=== PATIENT | female | born 1955 | race Caucasian/White ===

== ENCOUNTER → 2016-12-04 | Outpatient (CLI) | payer OTHER ==
--- NOTE | 2016-12-04 09:08 | MA ---
Screening Digital Mammogram With Tomosynthesis Clinical Indications: Routine screening. Technique: Standard digital cephalocaudal and tomosynthesis mediolateral oblique projections are obt ained. The digital images were processed by the [employer] computer aided detection system. Comparison: November 2015, November 2014, November 2013, November 2012 and November 2011 Breast density: B; There are scattered fibroglandular densities. Findings: CAD was reviewed. No suspicious findings are identified. Impression: Negative mammogram. BI-RADS 1. Recommendation: Routine screening is recommended in one year. [facility] will send a result letter to the patient. Negative mammography should not preclude additional workup of a clinically suspicious finding. The patient's information is entered into a reminder system with a target due date for her next mammo gram. 3
== END ==
LOC: FIMAGING 08:15
DX: Z12.31 Encounter for screening mammogram for malignant neoplasm of breast (principal)
CPT/HCPCS: G0202

== ENCOUNTER → 2017-12-05 | Outpatient (CLI) | payer OTHER | LOC: FIMAGING 10:41 | PROVIDERS: ATTEND Family Medicine | DX: Z12.31 Encounter for screening mammogram for malignant neoplasm of breast (principal) ==

== ENCOUNTER → 2018-03-13 | Outpatient (CLI) | payer OTHER | LOC: FIMAGING 08:58 | PROVIDERS: ATTEND Hospitalist | DX: Q61.00 Congenital renal cyst, unspecified (principal) ==

== ENCOUNTER → 2018-04-16 | Outpatient (CLI) | payer OTHER ==
[~2018-04-16] MED LIST: IOPAMIDOL (ISOVUE-300) 100 ML BTL ONE
== END ==
LOC: FIMAGING 08:52
PROVIDERS: ATTEND Hospitalist
DX: Q61.00 Congenital renal cyst, unspecified (principal)
CPT/HCPCS: Q9967

== ENCOUNTER → 2018-12-08 | Outpatient (CLI) | payer OTHER | LOC: FIMAGING 08:46 | PROVIDERS: ATTEND Family Medicine | DX: Z12.31 Encounter for screening mammogram for malignant neoplasm of breast (principal) ==

== ENCOUNTER → 2019-02-11 | Outpatient (CLI) | payer OTHER | LOC: FIMAGING 09:33 | PROVIDERS: ATTEND Family Medicine | DX: Z01.818 Encounter for other preprocedural examination (principal); Z87.891 Personal history of nicotine dependence ==

== ENCOUNTER → 2019-02-15 | Outpatient (CLI) | payer OTHER | LOC: FIMAGING 09:24 | PROVIDERS: ATTEND Orthopaedic Surgery | DX: M16.0 Bilateral primary osteoarthritis of hip (principal) ==

== ENCOUNTER 2019-03-01 08:49 | Inpatient (IN) | payer OTHER ==
--- NOTE | 2019-03-01 06:40 | PDIAF ---
- Diagnosis Diagnosis: right hip djd Code Status: Full Code - Medication Management Discharge Medications: electronically signed and located in the Home Medication List. - Orders Services needed: Home Care, Physical Therapy Home Care Face to Face: I certify that this patient was under my care and that I had the required knmd-qu-ljxy encounter meeting the encounter requirements on the discharge day. My findings support the fact that the patient is homebound as defined in Home Care Face to Face Continued: CMS Chapter 7 Medicare Benefits Manual 30.1.1 , The condition of the patient is such that there exists a normal inability to leave home and consequently, leaving home would require a considerable and taxing effort. Diet Recommendation: no restrictions on diet Diet Texture: Regular Texture Diet Additional Instructions: TOTAL JOINT ARTHROPLASTY DISCHARGE INSTRUCTIONS 1. Your surgeon follows the [facility] protocol for reducing your risk of DVT (blood clots) following surgery. Medication will be ordered to prevent blood clots. A sudden increase in calf pain and/or swelling could indicate a blood clot in your leg. If this occurs, please call your surgeon or his/her care team assistant. An ultrasound of the leg may be necessary to diagnose a blood clot. If you have conditions that make you a higher risk for blood clots, your surgeon may use more aggressive ways to prevent them. Notify your surgeon if you think you are a high risk for blood clots. 2. Wear your white surgical stockings (BINA hose) for 2 weeks. This decreases your swelling and may help prevent blood clots. It is ok to remove BINA hose at night time to give your legs a break. 3. Swelling and bruising in the surgical leg is common. If you feel that it is excessive, please notify your surgeon. 4. Elevate your surgical leg with the ankle above the hip several times every day. Please keep the leg straight when you elevate by putting pillows under your foot. Do not put pillows under your knee. This will make being able to fully straighten more difficult. This is uncomfortable, but try to do it as much as possible. 5. For total knee replacements use compressive wrap on your knee for 3-5 days after surgery, then you can discontinue it. 6. Use a walker or crutches for 1-2 weeks. Progress your weight-bearing as tolerated. You may start to use a cane when you feel stable and safe. 7. You will receive physical therapy instructions in the hospital. Continue those exercises at home. There are additional exercises in the total joint booklet you were given before surgery. Outpatient physical therapy will begin 7- 10 days after surgery. Please schedule this in advance. 8. Use ice on your knee at least 3-5 times every day for 30 minutes. This helps reduce pain and swelling. Also use it at night before falling asleep. 9. Leave your surgical dressing in place for 2 weeks. Your dressing is water resistant, but not waterproof. Cover it with Saran Wrap or Shbfz-o-Nlbb before showering. You may shower as soon as you feel safe entering a shower. If you notice bleeding from your incision 2 or 3 days after surgery, please notify your surgeon. 10. Due to narcotics, decreased activity and altered diet, most patients experience constipation after surgery. Use hajn-lom-baqswcr stool softeners while you are on narcotics. 11. You may drive a car when you are comfortable bearing weight, have good muscular control of your leg and are off narcotics. This usually occurs 2-4 weeks after surgery, depending on which leg was operated on. 12. If there are questions not addressed here, please refer the [facility] book given for more information. If you still have questions, please contact your surgeon s office. 13. If you have a life-threatening emergency, please call 911 and go to the emergency room immediately. For non-life threatening emergencies, please call your physicians office for advice before going to the emergency room. - Follow Up Care Current Providers and Referrals: Toña Allen MD [Primary Care Provider] - Tor Truong MD [Medical Doctor] -
--- NOTE | 2019-03-01 06:40 | PDHPUP ---
History & Physical Update H&P update statement: This history and physical update is based on an assessment of the patient which was completed after admission or registration (within 24 hours), but prior to the surgery/procedure. H&P update: no change in patient's condition since H&P completed
[~2019-03-01 08:49] MED LIST changes: -IOPAMIDOL (ISOVUE-300) 100 ML BTL ONE; +ROPIVACAINE 0.2% 80 MG, EPINEPHrine 0.2 MG, KETOROLAC TROMETHAMINE 30 MG, morphINE 10 M... IU ONE; +TRANEXAMIC ACID 1,000 MG in NS 100 ML IV ONE
[2019-03-01] MEDS ORDERED: ACETAMINOPHEN 325 MG TAB PO ONE (09:07)
[2019-03-01] MEDS ORDERED: FAMOTIDINE 20 MG TAB PO ONE (09:07)
[2019-03-01] MEDS ORDERED: ceFAZolin 2 GM/DEXTROSE 100 ML IV ONE (09:07)
[2019-03-01] MEDS ORDERED: LR 1,000 ML IV ONE (09:09)
[2019-03-01] MEDS ORDERED: ceFAZolin 1 GM/5 ML SYR ONE (09:52)
--- NOTE | 2019-03-01 09:58 | PDANEPAE ---
ANE History of Present Illness rIGHT tOTAL hIP ANE Past Medical History - Cardiovascular History Hx Hypertension: No Hx Arrhythmias: No Hx Chest Pain: No Hx Coronary Artery / Peripheral Vascular Disease: No Hx CHF / Valvular Disease: No Hx Palpitations: No Cardiovascular History Comment: bp runs low. being seen at [facility] for abnormal ekg - Pulmonary History Hx COPD: No Hx Asthma/Reactive Airway Disease: No Hx Recent Upper Respiratory Infection: No Hx Oxygen in Use at Home: No Hx Sleep Apnea: No Sleep Apnea Screening Result - Last Documented: Negative - Neurologic History Hx Cerebrovascular Accident: Yes Hx Seizures: No Hx Dementia: No Neurologic History Comment: tia 2005. being seen by neurologist dr shazia neri 02/16/19 - Endocrine History Hx Diabetes: No - Renal History Hx Renal Disorders: No - Liver History Hx Hepatic Disorders: No - Neurological & Psychiatric Hx Hx Neurological and Psychiatric Disorders: No - Cancer History Hx Cancer: No - Congenital Disorder History Hx Congenital Disorders: No - GI History Hx Gastrointestinal Disorders: Yes Gastrointestinal History Comment: reflux - Other Health History Other Health History: wears glasses. dermatitis on scalp. rosacea on face - Chronic Pain History Chronic Pain: Yes (right hip) - Surgical History Prior Surgeries: left hip labral repair- arthroscopic. tonsillectomy as a child ANE Review of Systems Review of Systems: - Exercise capacity METS (RN): 4 METS ANE Patient History - Allergies Allergies/Adverse Reactions: No Known Allergies Allergy (Verified 02/11/19 14:28) - Home Medications Home Medications: Fexofenadine HCl [Mary Allergy] 90 mg PO DAILY PRN 02/11/19 [Last Taken Unknown] Herbals/Supplements -Info Only 1 ea PO DAILY 02/11/19 [Last Taken Unknown] Multivitamins [Multivitamin (*)] 1 each PO DAILY 02/11/19 [Last Taken Unknown] Propylene Glycol/Peg 400 [Systane 0.3-0.4% Eye Drops] 1 drop EACHEYE DAILY PRN 02/11/19 [Last Taken Unknown] Pseudoephedrine HCl 30 mg PO DAILY PRN 02/11/19 [Last Taken Unknown] Zolpidem Tartrate [Ambien 5MG (*)] 5 mg PO HS 02/11/19 [Last Taken Unknown] valACYclovir [Valtrex (*)] 500 mg PO BID PRN 02/11/19 [Last Taken Unknown] - NPO status NPO Since - Liquids (Date): 03/01/19 NPO Since - Liquids (Time): 06:00 NPO Since - Solids (Date): 02/28/19 NPO Since - Solids (Time): 23:00 - Smoking Hx Smoking Status: Former smoker - Family Anes Hx Family Hx Anesthesia Complications: none ANE Labs/Vital Signs - Vital Signs Blood Pressure: 112/63 Heart Rate: 42 Respiratory Rate: 8 O2 Sat (%): 98 Height: 170.18 cm Weight: 56.699 kg ANE Physical Exam - Airway Neck exam: FROM Mallampati Score: Class 2 Mouth exam: normal dental/mouth exam - Pulmonary Pulmonary: clear to auscultation - Cardiovascular Cardiovascular: regular rate and rhythym - ASA Status ASA Status: II ANE Anesthesia Plan Anesthesia Plan: spinal
[2019-03-01] MEDS ORDERED: PROPOFOL/EMULSION 500 MG/50 ML BOTTLE IV ONE (10:01)
[2019-03-01] MEDS ORDERED: PROPOFOL 200 MG/20 ML VIAL ONE (10:03)
[2019-03-01] MEDS ORDERED: MIDAZOLAM 2 MG/2 ML VIAL ONE (10:03)
[2019-03-01] MEDS ORDERED: DEXAMETHASONE 4 MG/ML VIAL ONE ×2 (10:05→10:53)
[2019-03-01] MEDS ORDERED: LIDOCAINE 2% 2 ML INJ ONE ×2 (10:05)
[2019-03-01] MEDS ORDERED: ONDANSETRON 4 MG/2 ML VIAL ONE ×3 (10:05→10:52)
[2019-03-01] MEDS ORDERED: BUPIVACAINE/DEXTROSE 7.5MG/ML 2 ML SPINAL AMP SP ONE (10:06)
[2019-03-01] MEDS ORDERED: DEXAMETHASONE 4 MG/ML VIAL IVP PRN ×2 (10:25→11:49)
[2019-03-01] MEDS ORDERED: oxyCODONE IR 5 MG TAB PO PRN ×2 (10:25→11:49)
[2019-03-01] MEDS ORDERED: NALOXONE HCL 0.4 MG/ML INJ IVP PRN ×2 (10:25→11:49)
[2019-03-01] MEDS ORDERED: fentaNYL 100 MCG/2 ML INJ IVP PRN ×2 (10:25→11:49)
[2019-03-01] MEDS ORDERED: MIDAZOLAM 2 MG/2 ML VIAL IVP ONE (10:25)
[2019-03-01] MEDS ORDERED: ONDANSETRON 4 MG/2 ML VIAL IVP PRN ×3 (10:25→11:49)
[2019-03-01] MEDS ORDERED: HYDROmorphONE/DILAUDID 1 MG/ML INJ IVP PRN (10:25)
[2019-03-01] MEDS ORDERED: ALBUTEROL 3 ML DEYVIAL IH PRN ×2 (10:25→11:49)
[2019-03-01] MEDS ORDERED: BUPIVACAINE 0.5% 30 ML SDV ONE (10:38)
[2019-03-01] MEDS ORDERED: fentaNYL 100 MCG/2 ML INJ ONE (10:40)
[2019-03-01] MEDS ORDERED: ePHEDrine SULFATE 25 MG/5 ML SYR ONE (10:54)
[2019-03-01] MEDS ORDERED: PHENYLEPHRINE HCL 100 MCG/ML SYR ONE (11:41)
[2019-03-01] MEDS ORDERED: MAGNESIUM HYDROXIDE 30 ML UDCUP PO PRN (11:47)
[2019-03-01] MEDS ORDERED: ONDANSETRON DISINTEGRATING 4 MG TAB PO PRN (11:47)
[2019-03-01] MEDS ORDERED: CYCLOBENZAPRINE 10 MG TAB PO PRN (11:47)
[2019-03-01] MEDS ORDERED: POLYETHYLENE GLYCOL 3350 17 GM PKT PO PRN (11:47)
[2019-03-01] MEDS ORDERED: diphenhydrAMINE 25 MG CAP PO PRN (11:47)
[2019-03-01] MEDS ORDERED: PROMETHAZINE HCL 25 MG/ML INJ IVP PRN ×2 (11:47→11:49)
[2019-03-01] MEDS ORDERED: BISACODYL 10 MG SUPP PR PRN (11:47)
[2019-03-01] MEDS ORDERED: PROMETHAZINE HCL 25 MG SUPPR PR PRN (11:47)
[2019-03-01] MEDS ORDERED: DIPHENOXYLATE/ATROPINE LOMOTIL 1 TAB PO PRN (11:47)
[2019-03-01] MEDS ORDERED: METOCLOPRAMIDE 10 MG/2 ML VIAL IVP PRN ×2 (11:47→11:49)
[2019-03-01] MEDS ORDERED: LACTULOSE 20 GM/30 ML UDCUP PO PRN (11:47)
--- NOTE | 2019-03-01 11:47 | POSTOPPROG ---
Post Op Note Date of Operation: 03/01/19 Surgeon: Tor Truong System Programmer: Mary Anesthesiologist: Tiana Anesthesia: Spinal Pre-op Diagnosis: Right hip OA Post-op Diagnosis: Right hip OA Indication: Right hip OA Procedure: Right BARB, anterior approach, ANIL assist Findings: Right hip OA Inf/Abcess present in the surg proc area at time of surgery?: No Depth: Deep Incisional (Fascial) EBL: 100-500 Drains: Hemovac
[2019-03-01] MEDS ORDERED: Propylene Glycol/Peg 400 [Systane 0.3-0.4% Eye Drops] 1 DROP EACHEYE PRN (11:49)
[2019-03-01] MEDS ORDERED: MEPERIDINE 25 MG/0.5 ML AMP IVP PRN (11:49)
[2019-03-01] MEDS ORDERED: LABETALOL HCL 5 MG/ML 20 ML MDV IVP PRN (11:49)
[2019-03-01] MEDS ORDERED: LR 500 ML IV PRN (11:49)
[2019-03-01] MEDS ORDERED: PSEUDOEPHEDRINE HCL 30 MG TAB PO PRN (11:49)
[2019-03-01] MEDS ORDERED: PHENYLEPHRINE HCL 100 MCG/ML SYR IVP PRN (11:49)
[2019-03-01] MEDS ORDERED: valACYclovir 500 MG TAB PO PRN (11:49)
[2019-03-01] MEDS ORDERED: LR 1,000 ML IV SCH (12:00)
--- NOTE | 2019-03-01 12:38 | POSTANESTH ---
Post Anesthetic Evaluation Cardiovascular Status: Normal, Stable Respiratory Status: Normal, Stable Level of Consciousness/Mental Status: Can Participate in Eval Pain Control: Adequate, Prn Tx Ordered Nausea/Vomiting Control: Adequate, Prn Tx Ordered Complications Possibly Related to Anesthesia: None Noted
--- NOTE | 2019-03-01 13:11 | PDMN ---
Medical Necessity Medical necessity: [facility] S560 hip arthroplasty IN -- OP: R BARB anterior , dinh assist. AUTH#[id number] FOR CPT 96756- INPT
[2019-03-01] MEDS: oxyCODONE IR 5 MG TAB PO PRN ×3 (13:46→21:09)
--- NOTE | 2019-03-01 16:13 | SOAPPROG ---
ALEKSANDRA Progress Note Assessment/Plan: Assessment: s/p right BARB, anterior approach, Charbel assist - procedure earlier tomorrow Plan: Begin discharge planning - home, support from , home health/PT Continue VTE ppx- aspirin 325 mg once daily, SCDs, BINA cruz Continue pain management Continue PT - follow anterior BARB precautions Remove drain tomorrow 03/01/19 16:11 Subjective: Patient states she is feeling good, pain is minimal/tolerable at this time. She plans to go home tomorrow and will have the support of her at home. She discussed with Dr. Truong having home PT for 1-2 weeks and then will start outpatient PT. She denies shortness of breath, chest pain, fever, chills, nausea , vomiting, calf pain. Objective: Vital Signs Temp Pulse Resp BP Pulse Ox 36.5 C 50 L 14 88/53 L 96 03/01/19 16:06 03/01/19 16:06 03/01/19 16:06 03/01/19 16:06 03/01/19 16:06 02/28/19 03/01/19 03/02/19 05:59 05:59 05:59 Intake Total 775 Output Total 1000 Balance -225 Patient resting comfortably in bed, no acute distress. Her is also present in the room. RLE: Surgical wound dressings are clean, dry and intact. Drain is in place. Lower leg compartments are soft and nontender. She can actively DF and PF her right foot and great toe against resistance. Grossly NVI distally. ICD10 Worksheet Patient Problems: Problems Problem Status Onset Unilateral primary osteoarthritis, right hip Acute
[2019-03-01] MEDS: ACETAMINOPHEN 325 MG TAB PO SCH ×2 (17:14→22:58)
[2019-03-01] MEDS: TRANEXAMIC ACID 650 MG TAB PO SCH (17:14)
[2019-03-01] MEDS: ceFAZolin 2 GM/DEXTROSE 100 ML IV SCH (17:19)
[2019-03-01] MEDS: SENNOSIDES/DOCUSATE SODIUM TAB PO SCH (20:53)
[2019-03-01] MEDS: ASPIRIN 325 MG TAB PO SCH (20:54)
[2019-03-01] MEDS: FAMOTIDINE 20 MG TAB PO SCH (20:54)
[2019-03-01] MEDS ORDERED: ZOLPIDEM TARTRATE 5 MG TAB PO SCH (21:00)
[2019-03-02] MEDS: ceFAZolin 2 GM/DEXTROSE 100 ML IV SCH (02:04)
[2019-03-02] MEDS: TRANEXAMIC ACID 650 MG TAB PO SCH ×2 (02:13→11:29)
[2019-03-02] MEDS: ACETAMINOPHEN 325 MG TAB PO SCH ×2 (06:17→11:30)
--- NOTE | 2019-03-02 07:50 | SOAPPROG ---
SOAP Progress Note Assessment/Plan: Assessment: s/p right BARB, anterior approach, Charbel assist - POD 1 Anemia - expected initially post-op. Asymptomatic. Will continue to monitor Plan: Discharge planning - patient is doing better than expected, she will be going home today. SHe has support from . Will start home health/PT Continue VTE ppx- aspirin 325 mg once daily, SCDs, BINA hose. She will continue aspirin until 6 weeks post-op, BINA hose until 2 weeks post-op Continue pain management Continue PT - follow anterior BARB precautions. She will need to be cleared by PT prior to d/c Subjective: Patient states she is doing well. Her pain is manageable. She is planning on going home today. She worked with OT already and will have PT later this morning to work on walking and stairs. She denies shortness of breath, chest pain, fever, chills, nausea. She has been able to urinate spontaneously. Objective: Vital Signs Temp Pulse Resp BP Pulse Ox 36.7 C 49 L 16 90/59 L 94 03/02/19 03:28 03/02/19 03:28 03/02/19 03:28 03/02/19 03:28 03/02/19 03:28 Laboratory Results 03/02/19 04:35 03/01/19 03/02/19 03/03/19 05:59 05:59 05:59 Intake Total 2175 536 Output Total 1810 Balance 365 536 Patient sitting comfortably in the chair in her room, she is eating breakfast. RLE: Drain has been removed. Wound dressings are dry, intact. There is a small amount of blood that has saturated the distal aspect of the wound dressings. Lower leg compartments are soft, nontender, negative Homans sign. She can actively DF and PF her foot and great toe against resistance. Grossly NVI distally. ICD10 Worksheet Patient Problems: Problems Problem Status Onset Unilateral primary osteoarthritis, right hip Acute
--- NOTE | 2019-03-02 07:55 | PDDCSUM ---
Discharge Summary Discharge Summary: ADMIT DIAGNOSIS: Right hip degenerative joint disease DISCHARGE DIAGNOSIS: Right hip degenerative joint disease DATE/NAME OF PROCEDURE: March 01, 2019 Right total hip arthroplasty, anterior approach, Charbel assist HPI: The patient is a 63 year old female who has end-stage arthritis of her right hip. Clinical and radiographic features are consistent with this. Patient has failed attempts at conservative management, therefore, recommended operative right total hip replacement. HOSPITAL COURSE: Patient was admitted to the hospital floor after uncomplicated right total hip arthroplasty. Patient tolerated the procedure well and had no additional complications. At the time of discharge, patient is tolerating an oral diet, pain is well controlled on oral medications, and is voiding without difficulty. Dressing is clean, dry and intact. There is a small amount of blood on the distal aspect of the dressings. There is no swelling or calf tenderness. Patient has intact plantarflexion, dorsiflexion, EHL function. X-rays demonstrate anatomic positioning with no fracture or lucency. DISCHARGE ACTIVITY: Patient is WBAT and can perform ROM as tolerated. Patient will follow anterior total hip precautions. Patient was instructed to keep dressing clean, dry and intact. Patient is to seek attention for increasing redness, swelling, drainage or discharge. She will have home PT for 1-2 weeks and then she will begin outpatient PT. DISCHARGE MEDICATIONS: oxycodone 5 mg 1-2 every 3 hours prn pain, cyclobenzaprine 10 mg PO every 8 hours prn spasm, Zofran 4 mg orally disintegrating tablet every 8 hours prn nausea, aspirin 325 mg PO daily. FOLLOW-UP: Follow up in 2 weeks. Again, patient is to seek attention for increasing redness, swelling, drainage or discharge.
[2019-03-02] MEDS: FAMOTIDINE 20 MG TAB PO SCH (08:21)
[2019-03-02] MEDS: ASPIRIN 325 MG TAB PO SCH (08:21)
[2019-03-02] MEDS: SENNOSIDES/DOCUSATE SODIUM TAB PO SCH (08:22)
[2019-03-02] MEDS ORDERED: CETIRIZINE 10 MG TAB PO PRN (09:00)
--- NOTE | 2019-03-02 09:44 | PDIAF ---
- Diagnosis Diagnosis: right hip djd Code Status: Full Code - Medication Management Discharge Medications: electronically signed and located in the Home Medication List. - Orders Services needed: Home Care, Physical Therapy Home Care Face to Face: I certify that this patient was under my care and that I had the required elmx-qu-irem encounter meeting the encounter requirements on the discharge day. My findings support the fact that the patient is homebound as defined in Home Care Face to Face Continued: CMS Chapter 7 Medicare Benefits Manual 30.1.1 , The condition of the patient is such that there exists a normal inability to leave home and consequently, leaving home would require a considerable and taxing effort. Diet Recommendation: no restrictions on diet Diet Texture: Regular Texture Diet Additional Instructions: TOTAL JOINT ARTHROPLASTY DISCHARGE INSTRUCTIONS 1. Your surgeon follows the [facility] protocol for reducing your risk of DVT (blood clots) following surgery. Medication will be ordered to prevent blood clots. A sudden increase in calf pain and/or swelling could indicate a blood clot in your leg. If this occurs, please call your surgeon or his/her anesthesiologist assistant certified. An ultrasound of the leg may be necessary to diagnose a blood clot. If you have conditions that make you a higher risk for blood clots, your surgeon may use more aggressive ways to prevent them. Notify your surgeon if you think you are a high risk for blood clots. 2. Wear your white surgical stockings (BINA hose) for 2 weeks. This decreases your swelling and may help prevent blood clots. It is ok to remove BINA hose at night time to give your legs a break. 3. Swelling and bruising in the surgical leg is common. If you feel that it is excessive, please notify your surgeon. 4. Elevate your surgical leg with the ankle above the hip several times every day. Please keep the leg straight when you elevate by putting pillows under your foot. Do not put pillows under your knee. This will make being able to fully straighten more difficult. This is uncomfortable, but try to do it as much as possible. 5. For total knee replacements use compressive wrap on your knee for 3-5 days after surgery, then you can discontinue it. 6. Use a walker or crutches for 1-2 weeks. Progress your weight-bearing as tolerated. You may start to use a cane when you feel stable and safe. 7. You will receive physical therapy instructions in the hospital. Continue those exercises at home. There are additional exercises in the total joint booklet you were given before surgery. Outpatient physical therapy will begin 7- 10 days after surgery. Please schedule this in advance. 8. Use ice on your knee at least 3-5 times every day for 30 minutes. This helps reduce pain and swelling. Also use it at night before falling asleep. 9. Leave your surgical dressing in place for 2 weeks. Your dressing is water resistant, but not waterproof. Cover it with Saran Wrap or Efcsa-a-Qune before showering. You may shower as soon as you feel safe entering a shower. If you notice bleeding from your incision 2 or 3 days after surgery, please notify your surgeon. 10. Due to narcotics, decreased activity and altered diet, most patients experience constipation after surgery. Use ekfa-ify-nrbhsgo stool softeners while you are on narcotics. 11. You may drive a car when you are comfortable bearing weight, have good muscular control of your leg and are off narcotics. This usually occurs 2-4 weeks after surgery, depending on which leg was operated on. 12. If there are questions not addressed here, please refer the [facility] book given for more information. If you still have questions, please contact your surgeon s office. 13. If you have a life-threatening emergency, please call 911 and go to the emergency room immediately. For non-life threatening emergencies, please call your physicians office for advice before going to the emergency room. - Follow Up Care Current Providers and Referrals: Toña Allen MD [Primary Care Provider] - Tor Truong MD [Medical Doctor] -
--- NOTE | 2019-03-02 10:32 | ASMTLACE ---
LACE Length of stay for Answers: 2 days current admission Acuity / Level of Answers: Yes Care: Did the patient have an inpatient admission? Comorbidities - select Answers: Cerebrovascular disease all that apply (CVA, TIA, aneurysms, vasc ular dementia) Opioid dependence / Chronic pain # of Emergency department Answers: 0 visits in the last 6 months Score: 10 Date Signed: 03/02/2019 10:12 AM Electronically Signed By:CR Petty
--- NOTE | 2019-03-02 10:38 | ASMTCMCOM ---
CM Note CM Note Notes: Pt had planned hip surgery, resides with partner. PT rec home care. Pt wants HC, chooses [facility]. Orders to be obtained via [employer]. Date Signed: 03/02/2019 10:14 AM Electronically Signed By:CR Petty
[2019-03-02 11:40] VITALS: BP 89/51
--- NOTE | 2019-03-02 13:17 | GOP ---
[f rep st] OPERATIVE REPORT DATE OF OPERATION: 03/01/2019 SURGEON: Tor Truong MD [employer]ES REP: Jean Pierre Hernandez, GAS WORKER, SENIOR MECHANICAL DEVELOPMENT ENGINEER, was a medical necessity for the entirety of the case. PREOPERATIVE DIAGNOSIS: Right hip degenerative joint disease. POSTOPERATIVE DIAGNOSIS: Right hip degenerative joint disease. PROCEDURE PERFORMED: Right total hip arthroplasty. FINDINGS: SPECIMENS: To Pathology, the femoral head. ESTIMATED BLOOD LOSS: 200 cc. INDICATIONS: Christine is 63-year-old woman with end-stage arthritis to her right hip. Clinical and rad iographic features are consistent with that. She has failed all attempts at conservative management. I have, therefore, recommended operative intervention. I have outlined the surgical procedure, ris ks, benefits, and alternatives. She wished to proceed. Written consent was signed and placed on pat harpreet's chart. DESCRIPTION OF PROCEDURE: Patient was identified in the preanesthesia area. The right hip clearly d emarcated as the operative site with a double marker. She was given 2 g of Ancef intravenously in ro venetie to the operative suite. In the OR, spinal anesthetic was placed followed by additional sedation. The pelvis and both lower extremities were sterilely prepped and draped in the usual fashion. Atte ntion was first turned to the left hemipelvis. A 2 cm incision was made over the iliac crest. Three pins were then placed in the pelvic reference array affixed. Attention was then turned to the right hip. An anterior approach was made. Thick subcutaneous flaps were elevated. The fascia overlying the tensor was opened and the tensor muscle retracted in lateral position. The underlying vascular s tructures were identified, cauterized, and transected. The rectus was elevated off the anterior caps ule. Retractors were placed into an extracapsular position. A T capsulotomy was made. Retractors w ere placed into an intracapsular position. Acetabular checkpoint was placed. Bony wedge was withdra wn from the femoral neck, as was the remnant of the femoral head. The soft tissue labrum was debride d across the acetabulum. The bony landmarks were entered into the computer using the Incentive soft cha. A 52 mm reamer was placed to the appropriate depth with an opening angle of 40 degrees and ant eversion of 20 degrees. A 52 mm acetabular shell was then impacted, confirmed to be fully seated. A 0-degree X3 liner was then placed and confirmed to be fully seated. Attention was then turned to th e femur which was delivered to the use of soft tissue releases and retractor placement. The proximal canal was opened, serial broaching carried out to a size 4 stem. Trial reduction was carried out, a nd a 36 mm -5 mm neck length was placed. The hip was reduced. This restored leg lengths to equal. Stability profile demonstrated full extension with external rotation to 90 degrees without subluxatio n, and intraoperative fluoroscopy was used to confirm appropriate positioning of all components. The trial stem was withdrawn. A final size 4 stem was impacted, confirmed to be fully seated. The trun nion was cleansed, and a 36 mm -5 mm Biolox head was then placed across the cleansed trunnion. The h ip was copiously irrigated and reduced. Stability profile was as previous. A 10-Dutch PVC drain wa s placed. The tissues were injected with a joint cocktail of ropivacaine, Toradol, and epinephrine. Fascia closed using 0 Vicryl, subcutaneous tissue using 2-0 Monocryl, and the skin stapled. Sterile dressings were applied. The patient was awakened, extubated, taken to recovery room in good, stable condition. TOTAL TOURNIQUET TIME: None. COMPLICATIONS: None. IMPLANTS: [place] Trident II acetabular shell, size 52 mm; Trident X3 0-degree polyethylene insert, 36 mm inner diameter; Accolade II 127-degree neck angle, hip stem size 4, and a Biolox head 36 mm -5 mm neck length. DISPOSITION: To the recovery room, then the floor. She will be weightbearing as tolerated. Anterio r hip precautions. /[id number]/MODL
--- NOTE | 2019-03-02 16:08 | ASDISCHSUM ---
Discharge Information Plan Status:Home with Home Health Medically Cleared to Leave: Discharge Date:03/02/2019 01:01 PM CM D/C Disposition: ADT D/C Disposition:Home Health Service Projected Discharge Date:03/02/2019 11:00 AM Transportation at D/C: Discharge Delay Reason: Follow-Up Date:03/02/2019 11:00 AM Discharge Slot: Final Diagnosis: Placement Information Referral Type:*Home Health Care Services Referral ID:[id number] Provider Name:[facility] Address 1:[address] Address 2: City:[place] Selection Factors: State:[place] Patient Contact Information Contact Name:ELVINAMELIA Relationship:Other Address: Work Phone: City: [facility] Phone: [facility] Code: Email: Financial Information Financial Class:HMO and PPO Plans Primary Plan Desc:[employer] DACIA HICKS Primary Plan Number:[id number] Secondary Plan Desc: Secondary Plan Number: Assessment Information LACE LACE Length of stay for Answers: 2 days current admission Acuity / Level of Answers: Yes Care: Did the patient have an inpatient admission? Comorbidities - select Answers: Cerebrovascular disease all that apply (CVA, TIA, aneurysms, vasc ular dementia) Opioid dependence / Chronic pain # of Emergency department Answers: 0 visits in the last 6 months Score: 10 Date Signed: 03/02/2019 10:12 AM Electronically Signed By:CR Petty [facility] Progress Note CM Note CM Note Notes: Pt had planned hip surgery, resides with partner. PT rec home care. Pt wants HC, chooses [facility]. Orders to be obtained via [employer]. Date Signed: 03/02/2019 10:14 AM Electronically Signed By:CR Petty Intervention Information
== END 2019-03-02 13:01 | disposition home health service (06) | DRG 470 ==
LOC: F3N 08:49
PROVIDERS: ADMIT Orthopaedic Surgery; ATTEND Orthopaedic Surgery
PROC: 0SR904A Replacement of Right Hip Joint with Ceramic on Polyethylene Synthetic Substitute, Uncemented, Open Approach (ICD-10-PCS; principal; 2019-03-01 11:30)
PROC: 8E0Y0CZ Robotic Assisted Procedure of Lower Extremity, Open Approach (ICD-10-PCS; principal; 2019-03-01 11:30)
DX: M16.11 Unilateral primary osteoarthritis, right hip (principal); K21.9 Gastro-esophageal reflux disease without esophagitis; Z86.73 Personal history of transient ischemic attack (TIA), and cerebral infarction without residual deficits; Z87.891 Personal history of nicotine dependence
CPT/HCPCS: 97110-GP; 97116-GP; 97161-GP; 97165-GO; J0171; J0690; J1100; J1885; J2250; J2270; J2370; J2405; J2704; J2795; J3010

== ENCOUNTER 2019-03-10 23:50 | Inpatient (IN) | payer OTHER ==
[2019-03-10] MEDS ORDERED: NS 1,000 ML IV ONE (23:52)
[2019-03-10] MEDS ORDERED: PANTOPRAZOLE SODIUM 40 MG VIAL IVP ONE (23:54)
--- NOTE | 2019-03-10 23:57 | EDPHY ---
H & P Time Seen by Provider: 03/10/19 23:57 HPI/ROS: HPI CHIEF COMPLAINT: Possible GI bleed. HISTORY OF PRESENT ILLNESS: This patient is 63-year-old female, Only on Asprin , she arrives to the emergency room concerned about possible GI bleed she had black tarry stool earlier today, she vomited tonight melena. She arrives to the emergency room with blood pressure in 80s. She is pale. Her I-STAT hemoglobin is 5. Hematocrit 15. She is on aspirin. She has never had a GI bleed. She has never had an ulcer. She denies any chest pain or shortness of breath. Does complain of nausea and some GI upset. Past Medical History recent right hip surgery Past Surgical History: Recent right hip surgery Social History: Denies drugs alcohol tobacco. Family History: Noncontributory ROS REVIEW OF SYSTEMS: 10 Systems were reviewed and negative with the exception of the elements mentioned in the history of present illness. Exam Constitutional triage nursing summary reviewed, vital signs reviewed, awake/ alert. Patient's initial blood per 80s over 40s. Eyes normal conjunctivae and sclera, EOMI, PERRLA. HENT pale conjunctiva, pale are eyes normal inspection, atraumatic, moist mucus membranes, no epistaxis, neck supple/ no meningismus, no raccoon eyes. Respiratory clear to auscultation bilaterally, normal breath sounds, no respiratory distress, no wheezing. Cardiovascular rate normal, regular rhythm, no murmur, no edema, distal pulses normal. Gastrointestinal soft, non-tender, no rebound, no guarding, normal bowel sounds, no distension, no pulsatile mass. Genitourinary no CVA tenderness. Musculoskeletal right hip: Ecchymosis present. no midline vertebral tenderness , full range of motion, no calf swelling, no tenderness of extremities, no meningismus, good pulses, neurovascularly intact. Skin pale skin, pink, warm, & dry, no rash, skin atraumatic. Neurologic awake, alert and oriented x 3, AAOx3, moves all 4 extremities equally, motor intact, sensory intact, CN II-XII intact, normal cerebellar, normal vision, normal speech. Psychiatric normal mood/affect. Heme/Lymph/Immune no lymphadenopathy. Differential Diagnosis: Includes but is not limited to in a particular order acute GI bleed, upper GI bleed, peptic ulcer disease, Shalonda-Sawyer tear Medical Decision Making: Plan for this patient 2 large-bore IVs, gentle IV fluids, type and screen, crossmatch for blood, will contact GI, will admit to the ICU, will transfuse blood. Re-evaluation: 1213AM: Dr. Garland, consulted will see 1213am: Dr. Olivares consulted for GIB IV Protonix as been ordered. Patient has 2 large-bore IVs 16 gauge. I have consented the patient for 2 units of blood. Patient be admitted to the ICU. Critical Care: Total Critical Care Time Spent Managing this Patient: 65 Minutes. This time was spent Exclusively with this patient. This Care was exclusive of procedures. The Organ System/life at risk was Acute GIB This Patient was in Critical Condition because GIB Patient consents for blood. Source: Patient, EMS - Medical/Surgical History Hx Asthma: No Hx Chronic Respiratory Disease: No Hx Diabetes: No Hx Cardiac Disease: No Hx Renal Disease: No Hx Cirrhosis: No Hx Alcoholism: No Hx HIV/AIDS: No Hx Splenectomy or Spleen Trauma: No Other PMH: L hip- torn labral repair, HSV - Social History Smoking Status: Former smoker Constitutional: Initial Vital Signs O2 Sat (%) 100 03/10/19 23:53 O2 Delivery Mode Nasal Cannula O2 (L/minute) 2 Allergies/Adverse Reactions: No Known Allergies Allergy (Verified 03/11/19 00:01) Home Medications: Medication Instructions Recorded Fexofenadine HCl [Mary Allergy] 90 mg PO DAILY PRN 02/11/19 Herbals/Supplements -Info Only 1 ea PO DAILY 02/11/19 Multivitamins [Multivitamin (*)] 1 each PO DAILY 02/11/19 Propylene Glycol/Peg 400 [SYSTANE 1 drop EACHEYE DAILY PRN 02/11/19 0.3-0.4% EYE DROPS] Pseudoephedrine HCl 30 mg PO DAILY PRN 02/11/19 Zolpidem Tartrate [Ambien 5MG (*)] 5 mg PO HS 02/11/19 valACYclovir [Valtrex (*)] 500 mg PO BID PRN 02/11/19 Cyclobenzaprine [Flexeril 10 MG 10 mg PO Q8HRS PRN #20 tab 03/02/19 (*)] Ondansetron Odt [Zofran Odt 4 mg 4 mg PO Q4HRS PRN #20 tab 03/02/19 (*)] oxyCODONE IR [Oxycodone Ir (*)] 5 - 10 mg PO Q3HRS PRN #50 tab 03/02/19 Acetaminophen [Tylenol 325mg (*)] 650 mg PO Q6H PRN 03/11/19 Selenium Sulfide [Anti-Dandruff] 1 sophia TP Q2D 03/11/19 metroNIDAZOLE 0.75 % [Metrogel 1 sophia TP DAILY 03/11/19 0.75% Topical Gel] Pantoprazole Sodium [Protonix 40mg 40 mg PO BID #120 tab 03/12/19 (*)] Medical Decision Making - Data Points Laboratory Results: Laboratory Results 03/10/19 23:52 03/10/19 00:00 Medications Given: Discontinued Medications Fentanyl (Sublimaze) 25 - 100 mcg IVP Q5M PRN PRN Reason: PACU, IMMEDIATE Pain control Stop: 03/11/19 10:04 Last Admin: 03/11/19 09:25 Dose: 50 mcg Sodium Chloride (Ns) 1,000 mls @ 0 mls/hr IV EDNOW ONE; Wide Open PRN Reason: Protocol Stop: 03/10/19 23:53 Last Admin: 03/10/19 23:59 Dose: 1,000 mls Sodium Chloride (Ns) 1,000 mls @ 100 mls/hr IV CONT SAYRA Stop: 09/07/19 00:59 Last Admin: 03/11/19 13:55 Dose: 1,000 mls Lactated Ringer's (Lr) 1,000 mls @ 0 mls/hr IV ONCE ONE PRN Reason: Per Protocol Stop: 03/11/19 06:56 Last Admin: 03/11/19 07:25 Dose: 1,000 mls Lactated Ringer's (Lr) 1,000 mls @ 0 mls/hr IV ONCE ONE PRN Reason: KVO Stop: 03/12/19 13:15 Last Admin: 03/12/19 13:31 Dose: 1,000 mls Ondansetron HCl (Zofran) 4 mg IVP Q4HRS PRN PRN Reason: Nausea/Vomiting, Can't Take PO Stop: 09/07/19 00:48 Last Admin: 03/11/19 09:31 Dose: 4 mg Pantoprazole Sodium (Protonix) 80 mg IVP EDNOW ONE Stop: 03/10/19 23:55 Last Admin: 03/11/19 00:20 Dose: 80 mg Pantoprazole Sodium (Protonix) 40 mg IVP Q6H SAYRA Stop: 09/07/19 05:59 Last Admin: 03/12/19 17:45 Dose: 40 mg Throat Lozenges (Cepacol Lozenge) 1 ea PO PRN PRN PRN Reason: Sore Throat Stop: 09/07/19 14:55 Last Admin: 03/11/19 15:13 Dose: 1 ea Zolpidem Tartrate (Ambien) 5 mg PO HS SAYRA Stop: 09/07/19 20:59 Last Admin: 03/11/19 22:06 Dose: 5 mg Point of Care Test Results: Chemistry 03/11/19 00:00 POC Sodium 138 mEq/L mEq/L (135-145) POC Potassium 3.4 mEq/L mEq/L (3.3-5.0) POC Chloride 102 mEq/L mEq/L (97-110) POC Total CO2 22 mEq/L mEq/L (22-31) POC BUN 36 mg/dL H mg/dL (7-23) POC Creatinine 0.8 mg/dL mg/dL (0.6-1.0) POC Glucose 154 mg/dL H mg/dL (70-100) ISTAT H&H 03/11/19 00:00 POC Hgb 5.1 gm/dL L* gm/dL (12.6-16.3) POC Hct 15 % L* % (38-47) Departure - Departure Disposition: [facility] Inpatient Acute Clinical Impression: GI bleed Qualifiers: GI bleed type/associated pathology: melena Qualified Code(s): K92.1 - Melena Condition: Critical
[2019-03-11 00:12] LABS: PLATELET COUNT 260 10^3/uL (150-400)
[2019-03-11 00:15] LABS: INR 1.26 (0.83-1.16); PROTIME(PATIENT) 15.3 SEC (12.0-15.0)
[2019-03-11] MEDS ORDERED: LORazepam 2 MG/ML INJ IVP PRN (00:49)
[2019-03-11] MEDS ORDERED: ONDANSETRON 4 MG/2 ML VIAL IVP PRN ×2 (00:49→09:04)
[2019-03-11] MEDS ORDERED: PROMETHAZINE HCL 25 MG/ML INJ IVP PRN (00:49)
[2019-03-11] MEDS ORDERED: ONDANSETRON DISINTEGRATING 4 MG TAB PO PRN (00:49)
[2019-03-11] MEDS ORDERED: ACETAMINOPHEN 650 MG SUPP PR PRN (00:53)
[2019-03-11] MEDS ORDERED: NS 1,000 ML IV SCH (01:00)
--- NOTE | 2019-03-11 01:44 | GHP ---
[f rep st] HISTORY AND PHYSICAL DATE OF ADMISSION: 03/11/2019 The patient provides history, appears reliable. EMR was reviewed and case discussed with ED provider . CHIEF COMPLAINT: Vomiting blood. HISTORY OF PRESENT ILLNESS: This is a very pleasant 63-year-old female with past medical history sig nificant for degenerative joint disease of the right hip, status post a right total hip arthroplasty with Dr. Truong on 03/01/19; iron-deficiency anemia; GERD; remote history of peptic ulcer disease wit h GI bleed remotely; who presents to the emergency department today with complaints of 1 day of black tarry stools and this evening vomiting dark coffee-ground emesis. The patient reports that she has been feeling increasingly lightheaded. She reported to RN that she had a syncopal episode in the bat hroom. She denies any true fevers, but did measure a temp up to 99, feeling cool but no shaking chil ls. She did have some nausea and 1 episode of vomiting, and has had continued GI bloating and abdomi nal upset. The pain is epigastric, does not radiate to her back. The patient is not currently on an y aspirin or Lovenox for postoperative DVT. The patient reports she is feeling tired, lightheaded, a nd noticed that she was quite pale today. She does take iron supplementation, even before surgery. She had not noticed any blackening of stools or change in color until today. REVIEW OF SYSTEMS: Ten systems reviewed, and negative except as noted above. Patient denies any jeremy st pain, palpitations. She did have increasing dyspnea on exertion and lightheadedness today only. ALLERGIES: No known drug allergies. HOME MEDICATIONS: As available per the EMR. Med rec is not yet completed. Please see EMR when avai lable. PAST MEDICAL HISTORY: Significant for degenerative joint disease of the right hip, status post right total hip arthroplasty; HSV; anemia of iron deficiency; GERD; history of TIA in 2005; plantar fascii tis; peptic ulcer disease, with history of bleed remotely. PAST SURGICAL HISTORY: Significant for right total hip arthroplasty 03/01/19, tonsillectomy, adenoid ectomy, colonoscopy, EGD, laparoscopic surgery for ectopic , FAMILY HISTORY: Father with hypertension, alcohol dependence, and pancreatic cancer. Mother with hi story of dementia, [place]. Paternal grandmother: CVA. Maternal grandfather: [place]. 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 She lives with her lifetime partner of 20 years. Before surgery patient was drinking 3-4 glasses or more of wine weekly. She has not had any alcohol for the past 2 weeks, except for a sip yesterday. She quit smoking multiple years ago and denies any illicit drugs. CODE STATUS: Full. PHYSICAL EXAM: VITAL SIGNS: Upon arrival to the emergency department: Blood pressure 87/53, heart rate 75, respiratory rate 16, O2 sat 98% on 2 L by nasal cannula, temperature 36.7. Current vital si gns available: Blood pressure is 147, heart rate is 78, respiratory rate 16, O2 sat is 100% on 2 L b y nasal cannula. GENERAL: The patient without any acute distress. Pleasant, thin adult female. Ly ing awake in bed. She does appear very pale. Her partner is at bedside. HEAD: Normocephalic, atra umatic. EYES: Extraocular muscles are grossly intact. Pupils equal and round with slightly decreas ed reactivity to light bilaterally, but symmetric. No scleral icterus or conjunctival injection. EN T: Mucous membranes are slightly dry. Mucous membranes are quite pale. Dentition intact. No nasal discharge. She does have some dry blood in the left naris. NECK: Supple. Trachea midline. CV: Regular rate and rhythm without any murmurs, rubs, or gallops appreciated. RESPIRATORY: Lungs clear to auscultation bilaterally. No wheezes, rales, or rhonchi appreciated. Unlabored breathing. ABDO MEN: Mildly distended. Patient has epigastric abdominal discomfort to palpation. No rebound or gua rding appreciated. : No suprapubic tenderness to palpation. No Joe catheter in place. EXTREMIT IES: The right hip is bandaged and is dry, clean and intact. There are some peripheral contusions i n various stages of healing. Minimally tender to palpation. The patient is able to move all extremi ties. Sits up independently. NEURO: Grossly nonfocal. Moves all extremities as noted above. PSYC H: Thought process and content, and questions are all appropriate. Patient is pleasant and cooperat cintia. LABORATORY STUDIES: WBC is 9.66, H and H are 5.7 and 17.5, MCV 97.8, platelet count is 260, neutroph il percent 69.6, no bands. PT 15.3, INR is 1.26, PTT is pending. VBG: Lactic acid 2.3. Sodium is 136, potassium 3.9, chloride is 105, CO2 is 22, anion gap 9; BUN is 42, creatinine 0.8, GFR of greate r than 60; glucose 165, calcium is 8.0. Total bilirubin 0.3, ALT is 33, AST is 21, alk phos 59, tota l protein 4.6, albumin is 2.5. Lipase 211. ASSESSMENT AND PLAN: A very pleasant 63-year-old female with history of gastroesophageal reflux dise ase; remote gastric ulcer with bleed; history of transient ischemic attack in 2016; degenerative join t disease, status post a total hip arthroplasty on 03/01/19; iron-deficiency anemia. Presents to the emergency department today with complaints of 1-day history of melena and episode of coffee-ground e mesis with lightheadedness and a syncopal episode at home. 1. Upper gastrointestinal bleed with coffee-ground emesis and melenic stools. Patient has been star nury on PPI bolus. We will continue serial dosing. She will be made n.p.o. GI was consulted from [facility] emergency department will plan to see her in the morning once stabilized. The patient has not had any additional episodes since arrival. Suspect a gastric ulcer versus gastritis. Patient has not be en on aspirin or Lovenox postoperatively. 2. Acute blood-loss anemia. Anticipate replacement to achieve goal of greater than 7 and 21 for H a nd H. 3. Elevated lactic acid, likely secondary to dehydration and hypotension. No evidence of infectious process at this time. Hypocalcemia corrects for hypoalbuminemia, which is likely due to acute posto perative status versus acute gastrointestinal condition. 4. Chronic medical issues: a. Gastroesophageal reflux disease, on PPI. b. Anemia, iron deficiency, receiving transfusion. 5. Syncopal episode secondary to hypovolemia and acute blood-loss anemia. 6. Fluid, electrolyte, nutrition: IV fluid supplementation. Patient will be made n.p.o. pending GI evaluation the morning. Monitor electrolytes, replace if needed. 7. Prophylaxis: SCDs. Holding anticoagulation in setting of acute bleeding. 8. COR status is full. 9. Disposition: The patient admitted to inpatient status. She will require ICU level of care in [facility] setting of severe anemia, hypotension, and acute blood loss with likely an upper GI bleeding. /[id number]/MODL
[2019-03-11 04:57] LABS: PLATELET COUNT 183 10^3/uL (150-400)
[2019-03-11 05:06] LABS: INR 1.24 (0.83-1.16); PROTIME(PATIENT) 15.1 SEC (12.0-15.0)
[2019-03-11] MEDS ORDERED: LR 1,000 ML IV ONE (06:55)
[2019-03-11] MEDS: PANTOPRAZOLE SODIUM 40 MG VIAL IVP SCH ×3 (07:24→17:50)
[2019-03-11] MEDS ORDERED: LIDOCAINE 2% 100 MG/5 ML SYR ONE (08:33)
[2019-03-11] MEDS ORDERED: PROPOFOL/EMULSION 500 MG/50 ML BOTTLE IV ONE (08:33)
--- NOTE | 2019-03-11 08:37 | PDANEPAE ---
ANE History of Present Illness EGD ANE Past Medical History - Cardiovascular History Hx Hypertension: No Hx Arrhythmias: No Hx Chest Pain: No Hx Coronary Artery / Peripheral Vascular Disease: No Hx CHF / Valvular Disease: No Hx Palpitations: No Cardiovascular History Comment: bp runs low. being seen at [facility] for abnormal ekg - Pulmonary History Hx COPD: No Hx Asthma/Reactive Airway Disease: No Hx Recent Upper Respiratory Infection: No Hx Oxygen in Use at Home: No Hx Sleep Apnea: No - Neurologic History Hx Cerebrovascular Accident: Yes Hx Seizures: No Hx Dementia: No Neurologic History Comment: tia 2005. being seen by neurologist dr shazia neri 02/16/19 - Endocrine History Hx Diabetes: No - Renal History Hx Renal Disorders: No - Liver History Hx Hepatic Disorders: No - Neurological & Psychiatric Hx Hx Neurological and Psychiatric Disorders: No - Cancer History Hx Cancer: No - Congenital Disorder History Hx Congenital Disorders: No - GI History Hx Gastrointestinal Disorders: Yes Gastrointestinal History Comment: reflux - Other Health History Other Health History: wears glasses. dermatitis on scalp. rosacea on face - Chronic Pain History Chronic Pain: Yes (right hip) - Surgical History Prior Surgeries: left hip labral repair- arthroscopic. tonsillectomy as a child ANE Review of Systems Review of Systems: lightheaded, passed out ANE Patient History - Allergies Allergies/Adverse Reactions: No Known Allergies Allergy (Verified 03/11/19 00:01) - Home Medications Home medications: home medication list seen and reviewed Home Medications: Fexofenadine HCl [Mary Allergy] 90 mg PO DAILY PRN 02/11/19 [Last Taken Unknown] Herbals/Supplements -Info Only 1 ea PO DAILY 02/11/19 [Last Taken Unknown] Multivitamins [Multivitamin (*)] 1 each PO DAILY 02/11/19 [Last Taken Unknown] Propylene Glycol/Peg 400 [SYSTANE 0.3-0.4% EYE DROPS] 1 drop EACHEYE DAILY PRN 02/11/19 [Last Taken Unknown] Pseudoephedrine HCl 30 mg PO DAILY PRN 02/11/19 [Last Taken Unknown] Zolpidem Tartrate [Ambien 5MG (*)] 5 mg PO HS 02/11/19 [Last Taken Unknown] valACYclovir [Valtrex (*)] 500 mg PO BID PRN 02/11/19 [Last Taken Unknown] - NPO status NPO Status: no food or drink >8 hours - Anes Hx Anes Hx: no prior problems - Smoking Hx Smoking Status: Former smoker - Family Anes Hx Family Anes Hx: none Family Hx Anesthesia Complications: none ANE Labs/Vital Signs - Labs Result Diagrams: 03/11/19 04:20 03/11/19 04:20 - Vital Signs Vital Signs: reviewed preoperatively; see RN documention for details Blood Pressure: 97/54 Heart Rate: 65 Respiratory Rate: 15 O2 Sat (%): 97 Height: 170.18 cm Weight: 62.7 kg ANE Physical Exam - Airway Neck exam: FROM Mallampati Score: Class 1 - Pulmonary Pulmonary: no respiratory distress - Cardiovascular Cardiovascular: regular rate and rhythym - ASA Status ASA Status: III ANE Anesthesia Plan Total IV Anesthesia: Yes
[2019-03-11] MEDS ORDERED: EPINEPHrine 1 MG/10 ML SYR IVP ONE (08:46)
--- NOTE | 2019-03-11 09:01 | GIREPORT ---
Former[facility] Surgical Services - Endoscopy Department Patient Name: Christine Lamb Procedure Date: 03/11/2019 8:04 AM Patient Type: Inpatient Attending MD/ ER Physician: Orion Garland MD Procedure: Upper GI endoscopy Indications: Acute post hemorrhagic anemia, Coffee-ground emesis, Melena Providers: Orion Garland MD Medicines: General Anesthesia Complications: No immediate complications. Description of Procedure: After obtaining informed consent, the endoscope was passed under direct vision. Throughout the procedure, the patient's blood pressure, pulse, and oxygen saturations were monitored continuously. The Endoscope was intro duced through the mouth, and advanced to the second part of duodenum. The [facility] er GI endoscopy was accomplished without difficulty. The patient tolerated th e procedure well. Findings: The examined esophagus was normal. Hematin (altered blood/bknogz-shhtko-cbit material) was found in the en tire examined stomach. The gastric body was normal. Biopsies were taken with a cold forceps fo r histology. One non-obstructing non-bleeding gastric ulcer of significant severity with adherent clot was found in the gastric antrum. Area was successfully injected with 4 mL of a 1:10,000 solution of epinephrine for hemostasis . A deformity was found in the gastric antrum. The examined duodenum was normal. Estimated Blood Loss: Estimated blood loss: none. Post Op Diagnosis: - Patient at high risk for re-bleeding. - Normal esophagus. - Hematin (altered blood/jjetwo-prixex-fwpi material) in the entire sto mach. - Normal gastric body. Biopsied. - Non-obstructing non-bleeding gastric ulcer with adherent clot. Inject ed. - Acquired deformity in the gastric antrum. - Normal examined duodenum. Recommendation: - Continue to monitor closely in the ICU - NPO. - Serial H and H ,q 8 hours - Give Protonix (pantoprazole): initiate therapy with 80 mg IV bolus, t hen 8 mg/hr IV by continuous infusion. - If acute signs or symptoms of re-bleeding will repeat EGD emergently for endoscopic management. Otherwise repeat EGD in the next 24 to 48 hours to reassess ulcer. - Thank you for allowing me to participate in the care of your patient. Attending Participation: I personally performed the entire procedure. Orion Garland MD Orion Garland MD 03/11/2019 9:01:13 AM This report has been signed electronicallyStevduy Garland MD Number of Addenda: 0 Note Initiated On: 03/11/2019 8:04 AM [email or web address]}
[2019-03-11] MEDS ORDERED: DEXAMETHASONE 4 MG/ML VIAL IVP PRN (09:04)
[2019-03-11] MEDS ORDERED: oxyCODONE IR 5 MG TAB PO PRN (09:04)
[2019-03-11] MEDS ORDERED: ONDANSETRON 4 MG/2 ML VIAL ONE (09:04)
[2019-03-11] MEDS ORDERED: HYDROCODONE/APAP 5/325 TAB PO PRN (09:04)
[2019-03-11] MEDS ORDERED: NALOXONE HCL 0.4 MG/ML INJ IVP PRN (09:04)
[2019-03-11] MEDS ORDERED: fentaNYL 100 MCG/2 ML INJ IVP PRN (09:04)
--- NOTE | 2019-03-11 09:05 | POSTANESTH ---
Post Anesthetic Evaluation Cardiovascular Status: Similar to Pre-Op Cond Respiratory Status: Normal, Stable, Similar to Pre-op Cond. Level of Consciousness/Mental Status: Can Participate in Eval, Mildly Sleepy, Arousable Pain Control: Adequate, Prn Tx Ordered Nausea/Vomiting Control: Adequate, Prn Tx Ordered Complications Possibly Related to Anesthesia: None Noted
[2019-03-11] MEDS ORDERED: fentaNYL 100 MCG/2 ML INJ ONE (09:28)
--- NOTE | 2019-03-11 09:45 | GCON ---
[f rep st] CONSULTATION DATE OF CONSULTATION: 03/11/2019 REFERRING PHYSICIAN: Bruna Olivares MD CHIEF COMPLAINT: A 63-year-old woman with a GI bleed. HISTORY OF PRESENT ILLNESS: I have been asked to see this 63-year-old woman in consultation by Bruna Olivares MD for evaluation of GI bleeding. Patient has a history of DJD and previous hip surgery with a total right hip arthroplasty replacement in February of this year. She reportedly does have a history of iron deficiency anemia, gastroesophageal reflux disease, and chronic nonulcerative dyspepsia. She does have a reported prior history of peptic ulcer disease and prior GI bleeding remotely. She felt well yesterday, had a late dinner. About 9 p.m. started feeling unwell, had abdominal bloating with lightheadedness and some shortness of breath. She took some Gas-X and Pepto-Bismol, but still felt unwell. She progressively became worse, had an episode of nausea, vomiting with hematemesis, and a syncopal episode. She was brought to the emergency department. She was found to be profoundly anemic. She did have a 1-day history of black tarry stool. She does have a history of NSAID use. She takes daily aspirin. She does not take a daily proton pump inhibitor. I have been asked to see patient for further evaluation. PAST MEDICAL HISTORY: Remarkable for DJD, right hip replacement, status post right total hip arthroplasty, prior history of iron deficiency anemia, gastroesophageal reflux disease, TIA, plantar fasciitis, peptic ulcer disease. PAST SURGICAL HISTORY: Remarkable for total right hip arthroplasty, tonsillectomy and adenectomy, previous colonoscopy and EGD, laparoscopic surgery for ectopic . FAMILY HISTORY: Positive for hypertension and pancreatic cancer. Negative as it pertains to chief complaint. 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 Drinks 3 or 4 glasses of wine weekly. Nonsmoker. MEDICATIONS: Prior to admission include Ambien, aspirin. ALLERGIES: She has no known drug allergies. REVIEW OF SYSTEMS: Negative 10 systems other than mentioned HPI. PHYSICAL EXAM: VITAL SIGNS: 94/54, heart rate 65, respiratory rate 15, 97% saturation on room air, 36.8 Celsius is her temperature. GENERAL: Very pleasant woman lying in bed, no acute distress. HEENT: Normocephalic, atraumatic. EOMI. Mucous membranes moist. NECK: Supple. No cervical adenopathy. No thyromegaly. LUNGS: Clear. CARDIAC: Normal S1, S2. No murmur. ABDOMEN: Soft, benign, nontender. EXTREMITIES: Without clubbing, cyanosis, edema. SKIN: Warm, dry, intact. NEURO: Nonfocal. PSYCH: Alert and oriented x3 with normal affect. LABORATORY DATA: PT of 15.1, INR of 1.24, PTT of 20. Hemoglobin of 8.3 with hematocrit 25.2, status post transfusion, hematocrit on admission was 17.5, platelet count was 183,000. Chemistries: Serum sodium 137, potassium 4.0, chloride 109, CO2 of 22, BUN of 39, creatinine 0.6. IMPRESSION: 63-year-old woman with prior history of peptic ulcer disease, history of aspirin use. Patient with melena, hematemesis with coffee-ground material. Clinical presentation consistent with upper GI bleed, suspect peptic ulcer disease. NSAID induced ulceration. RECOMMENDATIONS: 1. IV resuscitation 2. Serial H and H. 3. IV pantoprazole. 4. NPO. 5. Proceed with urgent endoscopy. Will follow with you. /[id number]/MODL MTDD
--- NOTE | 2019-03-11 11:33 | PDMN ---
Medical Necessity Medical necessity: Pt meets inpt criteria per MD order and MCG M-180, Gastrointestinal Bleeding, Upper, A-2 days, inpt admission indicated for: syncope and severe anemia (H/H 5,7/17.5 upon admission and then down to 5.1/15) requiring bl transfusion. 63 y/o admitted w/upper GI bleed (coffee ground emesis and melenic stools), hypotensive 87/53, syncopal episode secondary to hypovolemia and ABLA, elevated lactate. IVF, IV PPI, bl transfusion, serial H/H , ICU care, EGD this AM. PMHx includes GERD, PUD w/GI bleed remotely, DJD w/ recent BARB (03/01/19). Anticipate>2MN for ongoing eval/management of above.
--- NOTE | 2019-03-11 13:01 | GCON ---
[f rep st] CONSULTATION DATE OF CONSULTATION: 03/11/2019 HPI: The patient is a 63-year-old female who has a history of gastroesophageal reflux disease, as we ll as anemia and a gastric ulcer in the distant past. She was admitted yesterday with a couple days of black, tarry stools, as well as coffee-ground emesis. She also had lightheadedness and then had a syncopal episode while in the bathroom. She was found to be severely anemic and underwent EGD [facility] today. Her blood pressure was borderline on arrival, but she did get 2 units of blood and that im proved things and never required pressors. She was also given Zofran, which helped with her nausea a nd she had mild abdominal bloating this morning. On her EGD, she was found to have a gastric ulcer w ith a clot and did get injected with epinephrine. Later had a minor emesis and was otherwise hemodyn amically stable. REVIEW OF SYSTEMS: Otherwise negative. PAST MEDICAL HISTORY: Includes degenerative joint disease of the right hip, HSV, iron-deficiency ane cinthia, gastroesophageal reflux disease, gastric ulcer in the distant past, TIA in 2005, plantar fasciit is and remote GI bleeding. PAST SURGICAL HISTORY: Includes total hip arthroplasty on 03/01/2019, tonsillectomy, adenoidectomy, colonoscopy, EGD, laparoscopic surgery for ectopic . SOCIAL HISTORY: She is a nonsmoker. Drinks a little bit of alcohol, but no alcohol-related illnesse s. FAMILY HISTORY: Includes hypertension, alcohol dependence and pancreatic cancer. CURRENT MEDICATIONS: Include p.r.n. Ativan, Zofran, Protonix, Phenergan, normal saline. PHYSICAL EXAM: VITAL SIGNS: At the time of my evaluation, her blood pressure was 114/67, heart rate 62, respirations 20, oxygen saturation 98% on room air. GENERAL: She is a very pleasant woman in n o apparent distress and able to speak in full sentences without using accessory muscles for breathing . HEENT: Pupils are equally round and reactive to light, nonicteric and noninjected. Mucous membra reena are moist without erythema or exudate. NECK: Supple without adenopathy or jugular vein distenti on. RESPIRATORY: Breath sounds were clear to auscultation bilaterally without wheezes, rubs, or ral es. HEART: Regular rate and rhythm without murmurs, rubs, or gallops. ABDOMEN: Soft, nontender an d nondistended with hypoactive bowel tones and no obvious tenderness. No back tenderness as well. E XTREMITIES: No clubbing, cyanosis, or edema. NEUROLOGICAL: Exam nonfocal, including cranial nerves and deep tendon reflexes. SKIN: Warm and dry without evidence of rash. OBJECTIVE DATA: Includes a white count of 9.6, hemoglobin 5.7, hematocrit 17.5; this was 31 on 03/02 . Platelets were normal at 260. INR was 1.26. Basic metabolic panel was remarkable only for a BUN of 42. LFTs were normal. Lipase was 211. Albumin 2.5. Urinalysis was normal. ASSESSMENT AND PLAN: 1. Gastrointestinal bleeding from a gastric ulcer. She has been treated appropriately with EGD and control of her bleeding. Appears to be hemodynamically stable at this time. It is not clear to me w reynaher H pylori was checked, but this may be an ongoing issue and we will discuss this with GI subseq uently. She responded well to her blood transfusion, appears to be stable now and I do not believe n eeds additional blood or correction of coagulation factors. 2. Syncope related to #1. I see no evidence of underlying cardiac arrhythmias and careful monitorin g is required only at this time. She is otherwise stable and can probably transfer to the floor subs equently. /[id number]/MODL
[2019-03-11] MEDS ORDERED: CYCLOBENZAPRINE 10 MG TAB PO PRN (13:21)
[2019-03-11] MEDS ORDERED: CEPACOL LOZENGE PO PRN (14:56)
--- NOTE | 2019-03-11 17:13 | HOSPPROG ---
Hospitalist Progress Note Assessment/Plan: 1. UGIB - Presented with melena, coffee ground emesis - Hgb 5.7 on admission, s/p 2 units of PRBCs, Hgb 8.3 this AM - Started on PPI IV q6 hours - GI consulted who performed EGD this AM which showed nonbleeding gastric ulcer with adherent clot, s/p injection - GI recommends serial H/H, continue IV PPI, repeat EGD in next 24-48 hours to reassess ulcer, NPO, repeat EGD emergently if acute signs or symptoms of re- bleeding - Avoid NSAIDs (patient on ASA 325 mg qd recently s/p THR) 2. Acute Blood Loss Anemia - Hgb 5.7 on admission - S/p 2 units PRBCs, repeat Hgb 8.3 this AM - Serial H/H q8 hours, next one pending 6pm - Transfuse H/H <7/20 3. Lactic Acidosis - In setting of hypotension and dehydration with UGIB - Management of UGIB as above 4. GERD - PPI as above, transition to PO if remains stable overnight 5. Syncope - In setting of severe anemia as above FEN: IVF, NPO DVT PPx: Holding in setting of UGIB Code: FULL Dispo: Pending clinical course Subjective: Pt reports feeling much improved this afternoon Objective: Vital Signs Temp Pulse Resp BP Pulse Ox 37.4 C 56 L 12 88/48 L 93 03/11/19 16:00 03/11/19 16:00 03/11/19 16:00 03/11/19 16:00 03/11/19 16:00 Laboratory Results 03/11/19 04:20 03/11/19 04:20 03/10/19 03/11/19 03/12/19 05:59 05:59 05:59 Intake Total 600 800 Output Total 500 Balance 600 300 PT 15.1 SEC (12.0-15.0) H 03/11/19 04:20 INR 1.24 (0.83-1.16) H 03/11/19 04:20 - Physical Exam Constitutional: no apparent distress Eyes: PERRL Ears, Nose, Mouth, Throat: moist mucous membranes Cardiovascular: regular rate and rhythym Respiratory: no respiratory distress Gastrointestinal: soft, non-tender abdomen Skin: warm Musculoskeletal: full muscle strength Neurologic: AAOx3 Psychiatric: interacting appropriately ICD10 Worksheet Patient Problems: Problems Problem Status Onset GI bleed Acute Unilateral primary osteoarthritis, right hip Acute
[2019-03-11] MEDS ORDERED: ZOLPIDEM TARTRATE 5 MG TAB PO SCH (21:00)
[2019-03-12] MEDS: PANTOPRAZOLE SODIUM 40 MG VIAL IVP SCH ×4 (02:30→17:45)
--- NOTE | 2019-03-12 11:06 | PDINTPN ---
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 EGD revealed with adherent clot. Transfused total 3 units RBC and remained hemodynamically stable. * GIB from - path pending for H pylori, but currently stable. BP dropped around 1800 03/11 and responded to 3rd unit RBC. Plans for repeat EGD today and remains NPO. * Recent BARB- PT/OT when cleared by GI * hypotension- likely related to hypovolemia and now resolved. Continue monitoring. * Syncope /2 GIB. No evidence of arrhythmia * Subjective: stable overnight; no complaints Objective: Vital Signs Temp Pulse Resp BP Pulse Ox 37.1 C 47 L 20 96/57 L 96 03/12/19 07:41 03/12/19 10:00 03/12/19 10:00 03/12/19 10:00 03/12/19 10:00 Laboratory Results 03/12/19 06:15 03/11/19 04:20 03/11/19 03/12/19 03/13/19 05:59 05:59 05:59 Intake Total 600 2325 Output Total 500 Balance 600 1825 PT 15.1 SEC (12.0-15.0) H 03/11/19 04:20 INR 1.24 (0.83-1.16) H 03/11/19 04:20 Physical Exam - Physical Exam General Appearance: WD/WN, alert, no apparent distress EENT: PERRL/EOMI Neck: supple Respiratory: lungs clear, normal breath sounds, decreased breath sounds, No respiratory distress, No accessory muscle use Cardiac/Chest: regular rate, rhythm, No edema, No JVD Abdomen: non-tender, soft, No distended Skin: normal color, warm/dry, No cyanosis Lymphatic: no adenopathy Extremities: No pedal edema Neuro/Psych: alert, normal mood/affect, oriented x 3 ICD10 Worksheet Patient Problems: Problems Problem Status Onset GI bleed Acute Unilateral primary osteoarthritis, right hip Acute
[2019-03-12] MEDS ORDERED: LR 1,000 ML IV ONE (13:14)
--- NOTE | 2019-03-12 13:53 | PDANEPAE ---
ANE History of Present Illness gastric ulcer here for EGD ANE Past Medical History - Cardiovascular History Hx Hypertension: No Hx Arrhythmias: No Hx Chest Pain: No Hx Coronary Artery / Peripheral Vascular Disease: No Hx CHF / Valvular Disease: No Hx Palpitations: No Cardiovascular History Comment: bp runs low. being seen at [facility] for abnormal ekg - Pulmonary History Hx COPD: No Hx Asthma/Reactive Airway Disease: No Hx Recent Upper Respiratory Infection: No Hx Oxygen in Use at Home: No Hx Sleep Apnea: No Sleep Apnea Screening Result - Last Documented: Negative - Neurologic History Hx Cerebrovascular Accident: Yes Hx Seizures: No Hx Dementia: No Neurologic History Comment: tia 2005. being seen by neurologist dr shazia neri 02/16/19 - Endocrine History Hx Diabetes: No - Renal History Hx Renal Disorders: No - Liver History Hx Hepatic Disorders: No - Neurological & Psychiatric Hx Hx Neurological and Psychiatric Disorders: No - Cancer History Hx Cancer: No - Congenital Disorder History Hx Congenital Disorders: No - GI History Hx Gastrointestinal Disorders: Yes Gastrointestinal History Comment: reflux - Other Health History Other Health History: wears glasses. dermatitis on scalp. rosacea on face - Chronic Pain History Chronic Pain: Yes (right hip) - Surgical History Prior Surgeries: left hip labral repair- arthroscopic. tonsillectomy as a child ANE Review of Systems Review of Systems: - Exercise capacity Exercise capacity: >=4 METS ANE Patient History - Allergies Allergies/Adverse Reactions: No Known Allergies Allergy (Verified 03/11/19 00:01) - Home Medications Home Medications: Fexofenadine HCl [Mary Allergy] 90 mg PO DAILY PRN 02/11/19 [Last Taken Unknown] Herbals/Supplements -Info Only 1 ea PO DAILY 02/11/19 [Last Taken Unknown] Multivitamins [Multivitamin (*)] 1 each PO DAILY 02/11/19 [Last Taken Unknown] Propylene Glycol/Peg 400 [SYSTANE 0.3-0.4% EYE DROPS] 1 drop EACHEYE DAILY PRN 02/11/19 [Last Taken Unknown] Pseudoephedrine HCl 30 mg PO DAILY PRN 02/11/19 [Last Taken Unknown] Zolpidem Tartrate [Ambien 5MG (*)] 5 mg PO HS 02/11/19 [Last Taken 03/09/19] valACYclovir [Valtrex (*)] 500 mg PO BID PRN 02/11/19 [Last Taken Unknown] Acetaminophen [Tylenol 325mg (*)] 650 mg PO Q6H PRN 03/11/19 [Last Taken 21:00] Selenium Sulfide [Anti-Dandruff] 1 sophia TP Q2D 03/11/19 [Last Taken Unknown] metroNIDAZOLE 0.75 % [Metrogel 0.75% Topical Gel (RX)] 1 sophia TP DAILY 03/11/19 [ Last Taken 03/10/19] - NPO status NPO Status: no food or drink >8 hours NPO Since - Liquids (Date): 03/10/19 NPO Since - Solids (Date): 03/10/19 - Anes Hx Anes Hx: no prior problems - Smoking Hx Smoking Status: Former smoker - Alcohol Use Alcohol Use: Occasionally - Family Anes Hx Family Anes Hx: none Family Hx Anesthesia Complications: none ANE Labs/Vital Signs - Labs Result Diagrams: 03/12/19 06:15 03/11/19 04:20 - Vital Signs Blood Pressure: 96/50 Heart Rate: 50 Respiratory Rate: 18 O2 Sat (%): 98 Height: 170.18 cm Weight: 62.7 kg ANE Physical Exam - Airway Neck exam: FROM Mallampati Score: Class 2 Mouth exam: normal dental/mouth exam - Pulmonary Pulmonary: no respiratory distress, clear to auscultation - Cardiovascular Cardiovascular: regular rate and rhythym, no murmur, rub, or gallop - ASA Status ASA Status: II, III ANE Anesthesia Plan Anesthesia Plan: GA with mask Total IV Anesthesia: Yes
[2019-03-12] MEDS ORDERED: PROPOFOL/EMULSION 500 MG/50 ML BOTTLE IV ONE (13:55)
[2019-03-12] MEDS ORDERED: PROMETHAZINE HCL 25 MG/ML INJ IVP PRN (14:09)
[2019-03-12] MEDS ORDERED: NALOXONE HCL 0.4 MG/ML INJ IVP PRN (14:09)
[2019-03-12] MEDS ORDERED: ONDANSETRON 4 MG/2 ML VIAL IVP PRN (14:09)
--- NOTE | 2019-03-12 14:16 | POSTANESTH ---
Post Anesthetic Evaluation Cardiovascular Status: Normal, Stable, Similar to Pre-Op Cond Respiratory Status: Normal, Stable, Similar to Pre-op Cond. Level of Consciousness/Mental Status: Mildly Sleepy, Arousable Pain Control: Adequate, Prn Tx Ordered Nausea/Vomiting Control: Adequate, Prn Tx Ordered Complications Possibly Related to Anesthesia: None Noted
--- NOTE | 2019-03-12 14:49 | GIREPORT ---
Formerly [facility] Surgical Services - Endoscopy Department Patient Name: Christine Labm Procedure Date: 03/12/2019 1:54 PM Patient Type: Inpatient Attending MD/ ER Physician: Antonio Bernardo MD Procedure: Upper GI endoscopy Indications: Acute post hemorrhagic anemia, Melena Patient Profile: 63 felicia old female presents for evaluaton of melena/acute post hemorrhag ic anemia/ antal ulcer. Providers: Antonio Bernardo MD Medicines: Monitored Anesthesia Care Complications: No immediate complications. Estimated blood loss: Minimal. Description of Procedure: After obtaining informed consent, the endoscope was passed under direct vision. Throughout the procedure, the patient's blood pressure, pulse, and oxygen saturations were monitored continuously. The Endoscope was intro duced through the mouth, and advanced to the second part of duodenum. The [facility] er GI endoscopy was accomplished without difficulty. The patient tolerated th e procedure well. Findings: The examined esophagus was normal. One non-bleeding superficial gastric ulcer with no stigmata of bleeding was found in the gastric antrum. The lesion was 20 mm in largest dimension. Biopsies were taken with a cold forceps for histology of the base. The examined duodenum was normal. Estimated Blood Loss: Estimated blood loss was minimal. Post Op Diagnosis: - Normal esophagus. - Non-bleeding gastric ulcer with no stigmata of bleeding. Biopsied. - Normal examined duodenum. - Etiology? Suspect NSAID induced ulceration. Biopsies taken. Recommend full dose PPI BID. No NSAIDs. Low chance of rebleed. GI will sign off. Thank you for the consultation! Recommendation: - Discharge patient to home (with escort). - Return patient to hospital [facility] for ongoing care. - Clear liquid diet. - No aspirin, ibuprofen, naproxen, or other non-steroidal anti-inflamma tory drugs. - Use a proton pump inhibitor PO BID. - Follow up EGD in 10 weeks. - GI will sign off. - Thank you for the consultation! Attending Participation: I personally performed the entire procedure. Antonio Bernardo MD Antonio Bernardo MD 03/12/2019 2:48:52 PM This report has been signed electronicallyAntonio Bernardo MD Number of Addenda: 0 Note Initiated On: 03/12/2019 1:54 PM [email or web address]
--- NOTE | 2019-03-12 15:44 | ASMTCMCOM ---
CM Note CM Note Notes: CM met with pt. Pt was recently at [facility] for a hip replacement. Pt had [facility] for HHC, they discharged her on 03/05. We discussed the need for HHC on this discharge. Pt felt she did not need it and states that she has great support. CM available if needs arise. Plan: Independent Date Signed: 03/12/2019 03:43 PM Electronically Signed By:Kelly Moran
[2019-03-12 16:07] VITALS: BP 94/54
--- NOTE | 2019-03-12 16:46 | HOSPPROG ---
Hospitalist Progress Note Assessment/Plan: DIAGNOSES/PLANS: 1. UGIB due to gastric ulCER -PPI -AVOID PLATELET INHIBITORS 2. Acute Blood Loss Anemia - Hgb 5.7 on admission, S/p 2 units PRBCs; repeat hemoglobin last evening back down to 6 so another unit of transfusion last night - continue careful monitoring of blood count hemodynamics, transfusion as needed 3. Lactic Acidosis - In setting of hypotension and dehydration with UGIB 4. GERD - PPI as above 5. 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: Exam: alert oriented skin warm dry color ok resps not labored lungs clear BSs heart regular abd soft nondistended nontender, bowel sounds present limbs warm, no edema iv site ok Objective: Vital Signs Temp Pulse Resp BP Pulse Ox 36.5 C 48 L 16 94/54 L 93 03/12/19 14:50 03/12/19 16:00 03/12/19 16:00 03/12/19 16:00 03/12/19 16:00 Laboratory Results 03/12/19 06:15 03/11/19 04:20 03/11/19 03/12/19 03/13/19 06:59 06:59 06:59 Intake Total 600 2325 730 Output Total 500 0 Balance 600 1825 730 PT 15.1 SEC (12.0-15.0) H 03/11/19 04:20 INR 1.24 (0.83-1.16) H 03/11/19 04:20 ICD10 Worksheet Patient Problems: Problems Problem Status Onset GI bleed Acute Unilateral primary osteoarthritis, right hip Acute
--- NOTE | 2019-03-12 18:38 | PDDCSUM ---
Discharge Summary Discharge Summary: DISCHARGE DIAGNOSES: * Acute upper GI bleed requiring transfusion 3 units red blood cells * Acute blood loss anemia * Syncope due to above * Gastric ulcer likely caused by daily aspirin use * Esophageal reflux disease by history of symptoms * Recent hip surgery, doing well with physical therapy CONSULTANTS: Dr. Antonio Bernardo PROCEDURES: Esophagogastroduodenoscopy on 2 occasions with biopsy on the 2nd study; finding of initially evidence of GI bleed which had stopped on the for study, and gastric ulcer on the 2nd study HOSPITAL COURSE SUMMARY: This patient presented to the hospital after syncope and upper GI bleed with melenic stools and hematemesis with coffee-grounds. Does have a previous history of ulcer but no bleeding history. She had started taking an aspirin a week before coming to the hospital at this time as DVT prophylaxis after recent hip surgery. The day before admission she started having melenic stools and on the day of admission those continued along with an episode of vomiting coffee-grounds as well as a syncope. As she presented the hospital she had initial hemoglobin 5. Her vital signs were in her baseline range. The patient was started on proton pump inhibitors. She was given a total of 2 units of red blood cells initially but with further decreases in her hemoglobin she was given 1/3 unit. She did not have evidence of thrombocytopenia or coagulopathy. After this there was no further sign of bleeding and her blood counts and vital signs all remained stable. Initially she had endoscopy that showed a ulcer in the gastric lining with adherent clot. A repeat endoscopy on this date showed no sign of any further bleeding, no adherent clot, some evidence of healing in the ulcer bed. Biopsies were taken At this point the patient appears to have an aspirin induced gastric ulcer with GI bleed and post hemorrhagic anemia. She is probably more anemic after her recent hip surgery than usual leading to her becoming anemic to the point of a syncope. She has now stabilized and appears to be at low risk for further bleeding. She will need 8 weeks of twice daily proton pump inhibitor and she understands this clearly. She has been advised to not take any aspirin or other NSAIDs. She is also advised to avoid alcohol for the next 8 weeks, she usually drinks 1 glass of wine daily. Because she will not be taking aspirin for DVT prophylaxis is recommended that she walk frequently at least hourly each day and wear her compression stockings. PENDING TEST RESULTS: None MEDICATION CHANGES: At addition of proton pump inhibitor twice daily for 8 weeks No aspirin or other NSAIDs FOLLOW-UP PLAN: With Dr. Bernardo in 6-8 weeks Greater than 35 minutes bedside and care coordination time today
== END 2019-03-12 18:45 | disposition home or self-care (01) | DRG 378 ==
LOC: EDUNIT# → F2N 03-11 02:46
PROVIDERS: ADMIT Family Medicine; ATTEND Family Medicine
PROC: 30233N1 Transfusion of Nonautologous Red Blood Cells into Peripheral Vein, Percutaneous Approach (ICD-10-PCS; 2019-03-11)
PROC: 0DB68ZX Excision of Stomach, Via Natural or Artificial Opening Endoscopic, Diagnostic (ICD-10-PCS; principal; 2019-03-11 08:30)
PROC: 3E0G8GC Introduction of Other Therapeutic Substance into Upper GI, Via Natural or Artificial Opening Endoscopic (ICD-10-PCS; principal; 2019-03-11 08:30)
PROC: 0DB68ZX Excision of Stomach, Via Natural or Artificial Opening Endoscopic, Diagnostic (ICD-10-PCS; 2019-03-12)
DX: K25.0 Acute gastric ulcer with hemorrhage (principal); D62 Acute posthemorrhagic anemia; T39.015A Adverse effect of aspirin, initial encounter; R55 Syncope and collapse; K21.9 Gastro-esophageal reflux disease without esophagitis; E86.0 Dehydration; D50.9 Iron deficiency anemia, unspecified; Z87.891 Personal history of nicotine dependence; Z96.641 Presence of right artificial hip joint; Z86.73 Personal history of transient ischemic attack (TIA), and cerebral infarction without residual deficits; E86.1 Hypovolemia
CPT/HCPCS: 82435-PO; 82565-PO; 82947-PO; 84132-PO; 84295-PO; 84520-PO; 85014-ER; 96374; 97116-GP; 97161-GP; J2001; J2405; J2704; J3010; P9016

== ENCOUNTER → 2019-04-14 | Outpatient (CLI) | payer OTHER | LOC: BMCIMAGING 09:03 ==